=== PATIENT | female | born 1955 | race Caucasian/White ===

== ENCOUNTER 2023-03-02 08:08 | Outpatient (OUT) | payer MEDICARE, SELFPAY ==
--- NOTE | 2023-03-02 08:43 | CT_ITS ---
[address] [address] Patient Name: LISA NELSON MRN: [id number] date: 1955 Sex: F Assigned Patient Location: CT Current Patient Location: CT Accession/Order Number: [id number] Exam Date: 03/02/2023 08:32 Report Date: 03/02/2023 09:06 At the request of: GWYN AYALA Procedure: CT lung screening low-dose EXAMINATION: CT lung screening low-dose HISTORY: Nicotine dependence F17.211, F17.219 , shortness of breath COMPARISON: No relevant comparison available. TECHNIQUE: Axial, Coronal, and Sagittal images were created without the administration of IV contrast material. Dose reduction techniques were achieved by using automated exposure control and/or adjustment of mA and/or kV according to patient size and/or use of iterative reconstruction technique. FINDINGS: LUNGS: A few calcified granulomas and mild emphysematous changes. No suspicious nodules. PLEURA: No mass, effusion, or pneumothorax. VASCULATURE: No abnormality. EZRA: Calcified lymph nodes. MEDIASTINUM: Calcified lymph nodes. CARDIAC: No enlargement, pericardial thickening, or significant calcification. AORTA: No aneurysm or dissection. CHEST WALL: No mass or axillary adenopathy BONES: Anterior mechanical fusion of the visible lower cervical spine. No bone lesion or fracture. LIMITED ABDOMEN: No suspicious findings. Limited images of the upper abdomen. OTHER: Negative. IMPRESSION: 1. Lung-RADS 2- Benign Appearance or Behavior. Nodules with a very low likelihood of becoming a clinically active cancer due to size or lack of growth. Follow-up CT Chest in 1 year. Electronically authenticated by: MARIBELL BAÑUELOS Date: 03/02/2023 09:06
[2023-03-02 08:54] LABS: Hemoglobin 13.2 g/dL (12.0-16.0)
--- NOTE | 2023-03-02 09:00 | RT_ITS ---
[facility] Test Date: 2023-03-02 Pat Name: LISA NELSON Department: Room: - Gender: Female [employer]: Katya Avery RRT : 1955 Requested By: Kimo Polanco Order Number: [id number] Reading MD: Kimo Polanco Interpretive Statements Pulmonary function testing was completed according to ATS criteria. Findings were considered accurate and reproducible. Both pre- and post-bronchodilator values utilized for spirometry. No prior studies available for comparison. Spirometry (based on pre-bronchodilator values): -FEV1/FVC: Low normal @ 74% -FEV1: Moderately reduced @ 66% -FVC: Moderately reduced @ 68% -XSI41-19%: Reduced @ 54% -There is a positive bronchodilator response in FVC. Lung volumes by plethysmography (based on pre-bronchodilator values): -RV: Increased @ 132% -TLC: Normal @ 99% Diffusion capacity: -DLCO: Moderately-severe reduction @ 53% when corrected for Hb 13.2g/dL Flow-volume loop: -Moderate obstructive pattern Impressions: -Spirometry trends towards a moderate obstructive pattern with a positive bronchodilator response. Elevated RV suggests air trapping. Moderately-severe diffusion impairment. Overall study suggests either COPD with a bronchodilator response or asthma-COPD overlap. Clinical correlation required. Electronically Signed On 03-02-2023 15:51:03 EDT by Kimo Polanco
[2023-03-02] MEDS: ALBUTEROL SULFATE 2.5 MG/3 ML VIAL NEB IH (09:43)
== END 2023-03-02 08:09 ==
LOC: CT 08:11
PROVIDERS: Visit Provider Internal Medicine
DX: F17.219 Nicotine dependence, cigarettes, with unspecified nicotine-induced disorders (principal); J44.9 Chronic obstructive pulmonary disease, unspecified
CPT/HCPCS: 36415; 71271; 85018; 94060; 94726; 94729

== ENCOUNTER 2023-04-01 10:55 | Outpatient (OUT) | payer MEDICARE, OTHER, SELFPAY ==
--- NOTE | 2023-03-12 14:25 | RESP.RT ---
See scanned chart
--- NOTE | 2023-03-12 17:31 | W.PM.PROCNOT ---
Date of procedure: 03/12/23 Procedure: 6-Minute Walk Test Indication: Chronic hypoxic respiratory failure, COPD Baseline data: Initial blood pressure: 138/84 Initial heart rate: 82 Initial oxygenation: SpO2 95% on room air. Initial Laure score: 3 MMRC: 3 Procedure: A 6-Minute Walk Test was initiated according to standard protocol. Walking to the starting cone, her SpO2 dropped to 89%, but she quickly recovered to 96%.The patient ambulated for a total of 6 minutes with the lowest documented SpO2 measured at 91% on RA with a maximum heart rate of 102. The maximum Laure score was 6. Symptoms reported: dyspnea, feeling faint. During recovery, blood pressure was 154/68 with a heart rate of 75. SpO2 was 97% on RA, with Laure score 2. Total number of stops: 3. Total distance walked was 198.1m, which was 83% of predicted walk distance. Impressions: No ambulatory desaturations noted. Decent walk distance. Patient fatigue suggests deconditioning Recommendations: No supplemental oxygen required based off this testing. Clinical correlation required.
== END 2023-04-01 10:56 | disposition home or self-care (01) ==
LOC: CARD 10:56
PROVIDERS: Visit Provider Internal Medicine
DX: J96.11 Chronic respiratory failure with hypoxia (principal); J44.9 Chronic obstructive pulmonary disease, unspecified
CPT/HCPCS: 94618